=== PATIENT | male | born 1970 | race Caucasian/White ===

== ENCOUNTER 2021-03-10 12:48 | Inpatient (IN) | payer OTHER ==
[2021-03-10] MEDS ORDERED: cefTRIAXone\\ROCEPHIN 2 GM VIAL ONE (13:57)
[2021-03-10 14:32] LABS: #Basophils 0.1 10x3/uL (0.0-0.2); #Monocytes 0.9 10x3/uL (0.0-1.1); #Neutrophils 18.1 10x3/uL (1.5-8.4); %Basophils 0.4 % (0.0-2.0); %Eosinophils 0.1 % (0.0-6.0); %Lymphocytes 3.8 % (18.0-47.0); %Monocytes 4.3 % (0.0-10.0); %Neutrophils 90.5 % (40.0-75.0); Hemoglobin 15.6 g/dL (13.5-17.5); Mean Corpuscular HGB CONC 34.6 g/dL (32.0-36.0); Mean Corpuscular Hemoglobin 29.7 pg (27.0-33.0); Mean Corpuscular Volume 85.7 fl (81.2-95.1); Mean Platelet Volume 11.6 fl (7.4-10.4); Platelet Count 211 10x3/uL (150-450); RBC Distribution Width 12.4 % (11.5-14.5); Red Blood Cell (RBC) Count 5.26 10x6/uL (4.32-5.72)
[2021-03-10 14:40] LABS: PTT 25.8 sec (22.0-33.0); Prothrombin Time 11.4 sec (9.5-12.1)
[2021-03-10 14:45] LABS: ALT (SGPT) 42 U/L (8-55); AST (SGOT) 24 U/L (5-34); Albumin 4.2 g/dL (3.5-5.0); Alkaline Phosphatase 79 U/L (40-110); Anion Gap 15 mmol/L (10-20); BUN (Urea Nitrogen) 16 mg/dL (8.9-20.6); Bilirubin, Total 1.2 mg/dL (0.2-1.2); Calc. Creatinine Clearance 0 mL/min (70-130); Calcium 9.3 mg/dL (7.8-10.44); Carbon Dioxide 22 mmol/L (22-29); Chloride 99 mmol/L (98-107); Globulin 3.1 g/dL (2.4-3.5); Glucose 207 mg/dL (70-105); Protein, Total 7.3 g/dL (6.0-8.3); Sodium 133 mmol/L (136-145)
[2021-03-10 15:38] LABS: Bilirubin Neg (Negative); Blood, Urine Negative (Negative); Clarity Clear (Clear); Glucose, Urine (Dipstick) Normal (Negative); Ketone, Urine Negative (Negative); Leukocyte 25 (Negative); Nitrite Negative (Negative); Protein, Urine (Dipstick) 15 mg/dl (Neg-Trace); Specific Gravity, Urine 1.015 (1.002-1.036); Urobilinogen Normal mg/dL (Less than 2)
[2021-03-10 15:58] LABS: Bacteria/HPF None Seen HPF (None Seen); RBC/HPF 0-3 HPF (0-3); Squamous Epithelial 0-3 HPF (0-3); WBC/HPF 0-3 HPF (0-3)
[2021-03-10] MEDS ORDERED: Bisacodyl 10 MG SUPP PR PRN (16:49)
[2021-03-10] MEDS ORDERED: Ondansetron PF 4 MG/2 ML Vial IVP PRN (16:49)
[2021-03-10] MEDS ORDERED: Senokot S 8.6-50 MG TAB PO PRN (16:49)
[2021-03-10] MEDS ORDERED: Dextrose 5% in Water 1,000 ML IV PRN (17:02)
[2021-03-10] MEDS ORDERED: Dextrose 50% Abboject 50 ML SYRINGE SLOW IVP PRN (17:02)
[2021-03-10] MEDS ORDERED: HumaLOG 300 UNITS/3 ML VIAL SC PRN ×2 (17:02)
[2021-03-10 17:21] LABS: Lactic Acid 2.5 mmol/L (0.5-2.2)
[2021-03-10] MEDS ORDERED: Ibuprofen 200 MG TAB ONE (17:31)
[2021-03-10 17:32] LABS: ALT (SGPT) 36 U/L (8-55); AST (SGOT) 19 U/L (5-34); Albumin 3.6 g/dL (3.5-5.0); Alkaline Phosphatase 56 U/L (40-110); Anion Gap 13 mmol/L (10-20); BUN (Urea Nitrogen) 17 mg/dL (8.9-20.6); Calc. Creatinine Clearance 0 mL/min (70-130); Calcium 8.4 mg/dL (7.8-10.44); Carbon Dioxide 25 mmol/L (22-29); Chloride 98 mmol/L (98-107); Globulin 2.7 g/dL (2.4-3.5); Glucose 225 mg/dL (70-105); Potassium 3.4 mmol/L (3.5-5.1); Protein, Total 6.3 g/dL (6.0-8.3); Sodium 133 mmol/L (136-145)
[2021-03-10 20:10] VITALS: BMI 50.2
[2021-03-10] MEDS: Vancomycin 1.5 GRAM/300 ML BAG 1.5 GM in Premix Bag 1 BAG IVPB SCH (20:37)
[2021-03-10] MEDS: Sodium Chloride 0.9% 1,000 ML IV SCH (20:38)
[2021-03-10] MEDS ORDERED: Potassium Chloride 20 MEQ TAB PO SCH (20:45)
[2021-03-10] MEDS ORDERED: Enoxaparin Sodium 40 MG/0.4 ML SYRINGE SC SCH (20:45)
[2021-03-10] MEDS: HYDROcodone/Acetaminophen 5/325 mg Tablet PO PRN (20:48)
[2021-03-10] MEDS: Potassium Chloride 20 MEQ in Premix Bag 1 BAG IVPB SCH ×4 (21:26→23:20)
[2021-03-10] MEDS ORDERED: FLU VACC QS2021-22(6MOS UP)/PF 60 MCG/0.5 ML SYRINGE IM ONE (23:45)
[2021-03-11] MEDS: HYDROcodone/Acetaminophen 5/325 mg Tablet PO PRN ×4 (03:54→20:02)
[2021-03-11 03:56] LABS: #Basophils 0.1 10x3/uL (0.0-0.2); #Monocytes 0.6 10x3/uL (0.0-1.1); %Basophils 0.3 % (0.0-2.0); %Lymphocytes 4.4 % (18.0-47.0); %Monocytes 3.6 % (0.0-10.0); %Neutrophils 91.2 % (40.0-75.0); Hemoglobin 13.3 g/dL (13.5-17.5); Mean Corpuscular HGB CONC 33.1 g/dL (32.0-36.0); Mean Corpuscular Hemoglobin 28.9 pg (27.0-33.0); Mean Corpuscular Volume 87.4 fl (81.2-95.1); Mean Platelet Volume 10.9 fl (7.4-10.4); Platelet Count 156 10x3/uL (150-450); RBC Distribution Width 12.7 % (11.5-14.5); White Blood Cell (WBC) Count 15.3 10x3/uL (3.5-10.5)
[2021-03-11 04:09] LABS: Cardiac Risk 2.6 (Less than 4.5)
[2021-03-11] MEDS: Sodium Chloride 0.9% 1,000 ML IV SCH ×3 (05:16→23:25)
[2021-03-11] MEDS: Acetaminophen 325 MG TAB PO PRN ×4 (05:59→23:25)
[2021-03-11] MEDS ORDERED: Piperacillin/Tazobactam 3.375 GM in Sodium Chloride 0.9% 100 ML IVPB SCH (09:00)
[2021-03-11] MEDS: Vancomycin 1.5 GRAM/300 ML BAG 1.5 GM in Premix Bag 1 BAG IVPB SCH ×2 (09:38→20:00)
[2021-03-11] MEDS: Enoxaparin Sodium 40 MG/0.4 ML SYRINGE SC SCH (09:42)
[2021-03-11] MEDS: Piperacillin/Tazobactam 3.375 GM in Sodium Chloride 0.9% 100 ML IVPB SCH ×4 (12:05→23:14)
[2021-03-11] MEDS: metFORMIN 500 MG TAB PO SCH (17:58)
[2021-03-11 19:57] LABS: SARS-CoV-2 PCR by NAA Not Detected (NotDetected)
[2021-03-12] MEDS: HYDROcodone/Acetaminophen 5/325 mg Tablet PO PRN ×5 (02:10→20:54)
[2021-03-12 04:03] LABS: Hemoglobin 12.9 g/dL (13.5-17.5); Mean Corpuscular Hemoglobin 29.3 pg (27.0-33.0); Mean Corpuscular Volume 86.1 fl (81.2-95.1); Mean Platelet Volume 10.7 fl (7.4-10.4); Platelet Count 144 10x3/uL (150-450); RBC Distribution Width 12.8 % (11.5-14.5); White Blood Cell (WBC) Count 12.3 10x3/uL (3.5-10.5)
[2021-03-12 04:42] LABS: Band 25 % (5-11); Lymphocytes 5 % (21-51); Monocytes 3 % (0-10); Neutrophil 63 % (42-75); Reactive Lymphocytes 3 % (0-10)
[2021-03-12 04:44] LABS: Dohle Bodies SLIGHT; Large Platelets SLIGHT; Platelet Clumps SLIGHT; Platelet Morphology Comment Appears Adequate; Vacuoles SLIGHT
[2021-03-12 04:45] LABS: MDiff Complete? YES
[2021-03-12 04:46] LABS: RBC Morphology N
[2021-03-12] MEDS: Piperacillin/Tazobactam 3.375 GM in Sodium Chloride 0.9% 100 ML IVPB SCH ×3 (06:36→23:41)
[2021-03-12 08:43] LABS: Vancomycin, Trough 5.7 ug/mL
[2021-03-12] MEDS: Ramipril 5 MG CAP PO SCH (09:04)
[2021-03-12] MEDS: Enoxaparin Sodium 40 MG/0.4 ML SYRINGE SC SCH (09:05)
[2021-03-12] MEDS: Vancomycin 1.5 GRAM/300 ML BAG 1.5 GM in Premix Bag 1 BAG IVPB SCH (09:05)
[2021-03-12] MEDS: metFORMIN 500 MG TAB PO SCH ×3 (09:05→19:27)
[2021-03-12] MEDS: Sodium Chloride 0.9% 1,000 ML IV SCH (09:06)
[2021-03-12] MEDS ORDERED: Vancomycin HCl 500 MG in Sodium Chloride 0.9% 100 ML IVPB SCH (11:00)
[2021-03-12] MEDS ORDERED: Furosemide 100 MG/10 ML VIAL SLOW IVP SCH (13:00)
[2021-03-12] MEDS: VANCOMYCIN 2 GRAM/400 ML BAG 2 GM in Premix Bag 1 BAG IVPB SCH (17:35)
[2021-03-12] MEDS: Acetaminophen 325 MG TAB PO PRN (20:54)
[2021-03-13] MEDS: VANCOMYCIN 2 GRAM/400 ML BAG 2 GM in Premix Bag 1 BAG IVPB SCH ×2 (01:47→12:38)
[2021-03-13] MEDS: Acetaminophen 325 MG TAB PO PRN ×2 (03:13→08:37)
[2021-03-13] MEDS: HYDROcodone/Acetaminophen 5/325 mg Tablet PO PRN ×5 (03:13→21:37)
[2021-03-13 05:05] LABS: Hemoglobin 12.1 g/dL (13.5-17.5); Mean Corpuscular HGB CONC 34.4 g/dL (32.0-36.0); Mean Corpuscular Hemoglobin 29.6 pg (27.0-33.0); Mean Corpuscular Volume 86.1 fl (81.2-95.1); Mean Platelet Volume 11.1 fl (7.4-10.4); Platelet Count 136 10x3/uL (150-450); RBC Distribution Width 12.9 % (11.5-14.5); Red Blood Cell (RBC) Count 4.09 10x6/uL (4.32-5.72); White Blood Cell (WBC) Count 11.2 10x3/uL (3.5-10.5)
[2021-03-13 05:58] LABS: Anion Gap 12 mmol/L (10-20); BUN (Urea Nitrogen) 8 mg/dL (8.9-20.6); Calc. Creatinine Clearance 251 mL/min (70-130); Calcium 7.9 mg/dL (7.8-10.44); Carbon Dioxide 29 mmol/L (22-29); Chloride 94 mmol/L (98-107); Glucose 143 mg/dL (70-105); Sodium 132 mmol/L (136-145)
[2021-03-13 06:10] LABS: Potassium 2.7 mmol/L (3.5-5.1)
[2021-03-13] MEDS: Piperacillin/Tazobactam 3.375 GM in Sodium Chloride 0.9% 100 ML IVPB SCH (06:46)
[2021-03-13] MEDS: Potassium Chloride 20 MEQ TAB PO SCH ×2 (06:46→08:38)
[2021-03-13 07:30] LABS: MDiff Complete? YES
[2021-03-13 07:49] LABS: Band 5 % (5-11); Lymphocytes 7 % (21-51); Monocytes 4 % (0-10); Neutrophil 77 % (42-75); Nucleated RBC 1 % (0); Reactive Lymphocytes 7 % (0-10)
[2021-03-13 07:51] LABS: Platelet Morphology Comment Appears Adequate; RBC Morphology Normal
[2021-03-13] MEDS: metFORMIN 500 MG TAB PO SCH ×2 (08:37→16:00)
[2021-03-13] MEDS: Ramipril 5 MG CAP PO SCH (08:37)
[2021-03-13] MEDS: Enoxaparin Sodium 40 MG/0.4 ML SYRINGE SC SCH (08:41)
[2021-03-13 09:19] LABS: Vancomycin, Trough 23.6 ug/mL
[2021-03-13] MEDS: Vancomycin 1.5 GRAM/300 ML BAG 1.5 GM in Premix Bag 1 BAG IVPB SCH ×2 (10:30→17:40)
[2021-03-13] MEDS: CEFAZOLIN 2 GM in Premix Bag 1 BAG IVPB SCH ×2 (15:30→21:38)
[2021-03-13] MEDS: Ketorolac Tromethamine 30 MG/ML VIAL IVP PRN (21:36)
[2021-03-14] MEDS: Vancomycin 1.5 GRAM/300 ML BAG 1.5 GM in Premix Bag 1 BAG IVPB SCH ×2 (02:31→09:04)
[2021-03-14] MEDS: Ketorolac Tromethamine 30 MG/ML VIAL IVP PRN ×4 (03:46→22:49)
[2021-03-14] MEDS: HYDROcodone/Acetaminophen 5/325 mg Tablet PO PRN ×5 (03:47→20:22)
[2021-03-14 04:52] LABS: #Basophils 0.1 10x3/uL (0.0-0.2); #Eosinphils 0.2 10x3/uL (0.0-0.5); #Neutrophils 7.1 10x3/uL (1.5-8.4); %Basophils 0.6 % (0.0-2.0); %Eosinophils 1.5 % (0.0-6.0); %Lymphocytes 15.6 % (18.0-47.0); Mean Corpuscular HGB CONC 33.6 g/dL (32.0-36.0); Mean Corpuscular Hemoglobin 29.4 pg (27.0-33.0); Mean Corpuscular Volume 87.5 fl (81.2-95.1); Mean Platelet Volume 10.9 fl (7.4-10.4); Platelet Count 155 10x3/uL (150-450); RBC Distribution Width 13.2 % (11.5-14.5); Red Blood Cell (RBC) Count 4.08 10x6/uL (4.32-5.72); White Blood Cell (WBC) Count 10.1 10x3/uL (3.5-10.5)
[2021-03-14 04:58] LABS: Anion Gap 13 mmol/L (10-20); BUN (Urea Nitrogen) 9 mg/dL (8.9-20.6); Calc. Creatinine Clearance 261 mL/min (70-130); Calcium 8.2 mg/dL (7.8-10.44); Carbon Dioxide 32 mmol/L (22-29); Chloride 94 mmol/L (98-107); Glucose 136 mg/dL (70-105); Sodium 136 mmol/L (136-145)
[2021-03-14 05:08] LABS: Potassium 2.9 mmol/L (3.5-5.1)
[2021-03-14] MEDS: CEFAZOLIN 2 GM in Premix Bag 1 BAG IVPB SCH ×3 (05:59→22:58)
[2021-03-14 08:58] LABS: Vancomycin, Trough 16.5 ug/mL
[2021-03-14] MEDS: metFORMIN 500 MG TAB PO SCH ×2 (09:03→16:00)
[2021-03-14] MEDS: Ramipril 5 MG CAP PO SCH (09:03)
[2021-03-14] MEDS: Enoxaparin Sodium 40 MG/0.4 ML SYRINGE SC SCH (09:22)
[2021-03-14] MEDS: Potassium Chloride 20 MEQ TAB PO SCH ×2 (11:37→13:22)
[2021-03-14] MEDS: VANCOMYCIN 1.25 GM/250 ML BAG 1.25 GM in Premix Bag 1 BAG IVPB SCH ×2 (16:02→23:02)
[2021-03-15] MEDS: HYDROcodone/Acetaminophen 5/325 mg Tablet PO PRN ×4 (01:21→22:40)
[2021-03-15] MEDS: Ketorolac Tromethamine 30 MG/ML VIAL IVP PRN ×3 (04:03→19:54)
[2021-03-15] MEDS: CEFAZOLIN 2 GM in Premix Bag 1 BAG IVPB SCH ×2 (06:26→14:32)
[2021-03-15 07:07] LABS: Vancomycin, Trough 14.5 ug/mL
[2021-03-15] MEDS: VANCOMYCIN 1.25 GM/250 ML BAG 1.25 GM in Premix Bag 1 BAG IVPB SCH ×3 (07:42→19:00)
[2021-03-15] MEDS: Enoxaparin Sodium 40 MG/0.4 ML SYRINGE SC SCH (09:58)
[2021-03-15] MEDS: metFORMIN 500 MG TAB PO SCH ×2 (09:58→21:14)
[2021-03-15] MEDS: Ramipril 5 MG CAP PO SCH (09:59)
[2021-03-15] MEDS ORDERED: Meropenem 1 GM in Sodium Chloride 0.9% 100 ML IVPB SCH ×2 (16:00→20:00)
[2021-03-15] MEDS: Acetaminophen 325 MG TAB PO PRN (18:49)
[2021-03-16] MEDS: Ketorolac Tromethamine 30 MG/ML VIAL IVP PRN ×4 (01:50→20:43)
[2021-03-16] MEDS: Meropenem 1 GM in Sodium Chloride 0.9% 100 ML IVPB SCH ×3 (03:51→20:42)
[2021-03-16] MEDS ORDERED: VANCOMYCIN 1.25 GM/250 ML BAG 1.25 GM in Premix Bag 1 BAG IVPB SCH (04:00)
[2021-03-16 04:15] LABS: Anion Gap 16 mmol/L (10-20); BUN (Urea Nitrogen) 8 mg/dL (8.9-20.6); CRP (Inflammatory) 19.14 mg/dL (= or < 0.5); Calc. Creatinine Clearance 271 mL/min (70-130); Calcium 8.5 mg/dL (7.8-10.44); Carbon Dioxide 26 mmol/L (22-29); Chloride 99 mmol/L (98-107); Glucose 156 mg/dL (70-105); Sodium 137 mmol/L (136-145)
[2021-03-16] MEDS: HYDROcodone/Acetaminophen 5/325 mg Tablet PO PRN ×3 (05:17→18:41)
[2021-03-16 06:20] LABS: MDiff Complete? YES
[2021-03-16 06:27] LABS: Eosinophils 3 % (0-10); Lymphocytes 14 % (21-51); Monocytes 6 % (0-10); Neutrophil 72 % (42-75); Reactive Lymphocytes 2 % (0-10)
[2021-03-16 06:28] LABS: Platelet Morphology Comment Appears Adequate; RBC Morphology Normal
[2021-03-16 06:29] LABS: Hemoglobin 12.3 g/dL (13.5-17.5); Mean Corpuscular HGB CONC 33.2 g/dL (32.0-36.0); Mean Corpuscular Hemoglobin 29.2 pg (27.0-33.0); Mean Corpuscular Volume 87.9 fl (81.2-95.1); Mean Platelet Volume 10.9 fl (7.4-10.4); RBC Distribution Width 13.2 % (11.5-14.5); Red Blood Cell (RBC) Count 4.21 10x6/uL (4.32-5.72)
[2021-03-16 06:30] LABS: Platelet Count 227 10x3/uL (150-450)
[2021-03-16] MEDS: Furosemide 40 MG TAB PO SCH ×2 (08:31→14:07)
[2021-03-16] MEDS: metFORMIN 500 MG TAB PO SCH ×2 (08:31→17:12)
[2021-03-16] MEDS: Ramipril 5 MG CAP PO SCH (08:31)
[2021-03-16] MEDS: Enoxaparin Sodium 40 MG/0.4 ML SYRINGE SC SCH (08:32)
[2021-03-16 11:50] LABS: Vancomycin, Trough 12.9 ug/mL
[2021-03-17] MEDS: Meropenem 1 GM in Sodium Chloride 0.9% 100 ML IVPB SCH ×3 (04:30→20:51)
[2021-03-17] MEDS: Enoxaparin Sodium 40 MG/0.4 ML SYRINGE SC SCH (08:30)
[2021-03-17] MEDS: metFORMIN 500 MG TAB PO SCH ×2 (08:31→16:38)
[2021-03-17] MEDS: Furosemide 40 MG TAB PO SCH ×2 (08:31→14:11)
[2021-03-17] MEDS: Ramipril 5 MG CAP PO SCH (08:31)
[2021-03-17] MEDS: HYDROcodone/Acetaminophen 5/325 mg Tablet PO PRN (17:17)
[2021-03-18] MEDS: HYDROcodone/Acetaminophen 5/325 mg Tablet PO PRN ×3 (04:31→22:32)
[2021-03-18] MEDS: Meropenem 1 GM in Sodium Chloride 0.9% 100 ML IVPB SCH ×3 (04:31→20:20)
[2021-03-18 04:36] LABS: Hemoglobin 12.3 g/dL (13.5-17.5); Mean Corpuscular HGB CONC 32.5 g/dL (32.0-36.0); Mean Corpuscular Hemoglobin 28.7 pg (27.0-33.0); Mean Corpuscular Volume 88.6 fl (81.2-95.1); Mean Platelet Volume 9.9 fl (7.4-10.4); Platelet Count 340 10x3/uL (150-450); RBC Distribution Width 13.1 % (11.5-14.5); Red Blood Cell (RBC) Count 4.28 10x6/uL (4.32-5.72)
[2021-03-18 04:51] LABS: BUN (Urea Nitrogen) 8 mg/dL (8.9-20.6); Calc. Creatinine Clearance 264 mL/min (70-130); Calcium 8.7 mg/dL (7.8-10.44); Glucose 154 mg/dL (70-105)
[2021-03-18 04:59] LABS: Anion Gap 18 mmol/L (10-20); Carbon Dioxide 34 mmol/L (22-29); Chloride 89 mmol/L (98-107); Sodium 138 mmol/L (136-145)
[2021-03-18 07:48] LABS: MDiff Complete? YES
[2021-03-18] MEDS: Ramipril 5 MG CAP PO SCH (08:16)
[2021-03-18] MEDS: Enoxaparin Sodium 40 MG/0.4 ML SYRINGE SC SCH (08:16)
[2021-03-18] MEDS: metFORMIN 500 MG TAB PO SCH ×2 (08:16→16:55)
[2021-03-18 08:21] LABS: Eosinophils 2 % (0-10); Lymphocytes 24 % (21-51); Monocytes 7 % (0-10); Neutrophil 62 % (42-75); Platelet Morphology Comment Appears Adequate; Reactive Lymphocytes 5 % (0-10)
[2021-03-18] MEDS: Furosemide 40 MG TAB PO SCH ×2 (13:27→13:57)
[2021-03-18] MEDS ORDERED: VANCOMYCIN 2 GRAM/400 ML BAG 2 GM in Premix Bag 1 BAG IVPB SCH (15:00)
[2021-03-18] MEDS ORDERED: Potassium Chloride 20 MEQ TAB PO SCH (15:00)
[2021-03-18] MEDS ORDERED: VANCOMYCIN 1.75 GM/350 ML BAG 1.75 GM in Premix Bag 1 BAG IVPB SCH (21:00)
[2021-03-18] MEDS: VANCOMYCIN 1.25 GM/250 ML BAG 1.25 GM in Premix Bag 1 BAG IVPB SCH (22:36)
[2021-03-19] MEDS: Meropenem 1 GM in Sodium Chloride 0.9% 100 ML IVPB SCH ×3 (04:31→21:37)
[2021-03-19] MEDS: VANCOMYCIN 1.25 GM/250 ML BAG 1.25 GM in Premix Bag 1 BAG IVPB SCH (04:57)
[2021-03-19] MEDS: Enoxaparin Sodium 40 MG/0.4 ML SYRINGE SC SCH (08:16)
[2021-03-19] MEDS: HYDROcodone/Acetaminophen 5/325 mg Tablet PO PRN ×2 (08:17→17:17)
[2021-03-19] MEDS: Ramipril 5 MG CAP PO SCH (08:17)
[2021-03-19] MEDS: Furosemide 40 MG TAB PO SCH ×2 (08:17→14:06)
[2021-03-19] MEDS: metFORMIN 500 MG TAB PO SCH ×2 (08:17→16:40)
[2021-03-19] MEDS ORDERED: VANCOMYCIN 1.25 GM/250 ML BAG 1.25 GM in Premix Bag 1 BAG IVPB SCH (12:00)
[2021-03-19 21:13] LABS: Vancomycin, Trough 2.8 ug/mL
[2021-03-20] MEDS: Meropenem 1 GM in Sodium Chloride 0.9% 100 ML IVPB SCH ×3 (03:46→19:51)
[2021-03-20] MEDS: HYDROcodone/Acetaminophen 5/325 mg Tablet PO PRN ×3 (03:46→20:54)
[2021-03-20] MEDS: metFORMIN 500 MG TAB PO SCH ×2 (08:46→17:33)
[2021-03-20] MEDS: Furosemide 40 MG TAB PO SCH ×2 (08:46→13:55)
[2021-03-20] MEDS: Ramipril 5 MG CAP PO SCH (08:46)
[2021-03-20] MEDS: Enoxaparin Sodium 40 MG/0.4 ML SYRINGE SC SCH (08:46)
[2021-03-21] MEDS: Meropenem 1 GM in Sodium Chloride 0.9% 100 ML IVPB SCH ×2 (04:06→11:39)
[2021-03-21 06:44] LABS: Anion Gap 15 mmol/L (10-20); BUN (Urea Nitrogen) 14 mg/dL (8.9-20.6); Calc. Creatinine Clearance 228 mL/min (70-130); Calcium 9.2 mg/dL (7.8-10.44); Carbon Dioxide 31 mmol/L (22-29); Chloride 96 mmol/L (98-107); Glucose 139 mg/dL (70-105); Potassium 4.2 mmol/L (3.5-5.1); Sodium 138 mmol/L (136-145)
[2021-03-21 06:50] LABS: #Basophils 0.1 10x3/uL (0.0-0.2); #Eosinphils 0.2 10x3/uL (0.0-0.5); #Monocytes 1.1 10x3/uL (0.0-1.1); #Neutrophils 8.6 10x3/uL (1.5-8.4); %Eosinophils 1.7 % (0.0-6.0); %Lymphocytes 17.5 % (18.0-47.0); %Monocytes 8.2 % (0.0-10.0); %Neutrophils 67.6 % (40.0-75.0); Hemoglobin 13.3 g/dL (13.5-17.5); Mean Corpuscular HGB CONC 32.3 g/dL (32.0-36.0); Mean Corpuscular Volume 89.8 fl (81.2-95.1); Mean Platelet Volume 10.2 fl (7.4-10.4); Platelet Count 355 10x3/uL (150-450); RBC Distribution Width 12.9 % (11.5-14.5); Red Blood Cell (RBC) Count 4.59 10x6/uL (4.32-5.72); White Blood Cell (WBC) Count 12.8 10x3/uL (3.5-10.5)
[2021-03-21] MEDS: metFORMIN 500 MG TAB PO SCH (08:01)
[2021-03-21] MEDS: Ramipril 5 MG CAP PO SCH (08:01)
[2021-03-21] MEDS: Furosemide 40 MG TAB PO SCH ×2 (08:01→14:12)
[2021-03-21] MEDS: Enoxaparin Sodium 40 MG/0.4 ML SYRINGE SC SCH (08:01)
[2021-03-21 16:18] VITALS: BP 113/74; TEMP 97.1
== END 2021-03-21 17:16 | disposition home or self-care (01) | DRG 872 ==
LOC: CSHERS 12:48 → CSHTELE 19:43 → EEVIPCON 19:43
PROVIDERS: ADMIT Family Medicine; ATTEND Internal Medicine
PROC: 02HV33Z Insertion of Infusion Device into Superior Vena Cava, Percutaneous Approach (ICD-10-PCS; principal; 2021-03-20)
PROC: B518ZZA Fluoroscopy of Superior Vena Cava, Guidance (ICD-10-PCS; 2021-03-20)
PROC: B548ZZA Ultrasonography of Superior Vena Cava, Guidance (ICD-10-PCS; 2021-03-20)
DX: A41.9 Sepsis, unspecified organism (principal); L03.115 Cellulitis of right lower limb; Z68.43 Body mass index [BMI] 50.0-59.9, adult; E11.9 Type 2 diabetes mellitus without complications; I10 Essential (primary) hypertension; E66.01 Morbid (severe) obesity due to excess calories; Z20.822 Contact with and (suspected) exposure to COVID-19; E87.6 Hypokalemia; Z79.84 Long term (current) use of oral hypoglycemic drugs; Z79.899 Other long term (current) drug therapy
CPT/HCPCS: 36415; 36416; 36569; 71045; 80048; 80053; 80061; 80202; 81003; 81015; 83605; 85025; 85610; 85730; 86140; 87040; 93970; 94640; 94760; 94762; 96365; C1751; J0690; J0696; J1650; J1885; J1940; J2185; J2405; J2543; J3370; J3480; J3490; J7050; J7620; U0003; U0005